=== PATIENT | female | born 1930 | race African-American/Black ===

== ENCOUNTER → 2019-09-18 | Outpatient (CLI) | payer OTHER | LOC: SJCVC 14:48 | DX: I47.1 Supraventricular tachycardia (principal); I49.1 Atrial premature depolarization; E11.9 Type 2 diabetes mellitus without complications; Z79.899 Other long term (current) drug therapy ==

== ENCOUNTER → 2019-10-01 | Outpatient (CLI) | payer OTHER | LOC: SJCVC 13:12 | DX: I44.0 Atrioventricular block, first degree (principal); R94.31 Abnormal electrocardiogram [ECG] [EKG]; I47.1 Supraventricular tachycardia; E11.9 Type 2 diabetes mellitus without complications; Z79.899 Other long term (current) drug therapy; Z82.49 Family history of ischemic heart disease and other diseases of the circulatory system; Z79.84 Long term (current) use of oral hypoglycemic drugs ==

== ENCOUNTER → 2020-07-06 | Outpatient (CLI) | payer OTHER | LOC: SJCVC 08:38 | PROVIDERS: ATTEND Internal Medicine Cardiovascular Disease | DX: R94.31 Abnormal electrocardiogram [ECG] [EKG] (principal); I10 Essential (primary) hypertension; R00.2 Palpitations; I49.1 Atrial premature depolarization; Z79.899 Other long term (current) drug therapy ==

== ENCOUNTER 2020-08-06 19:44 | Emergency (ER) | payer OTHER ==
[~2020-08-06] VITALS: Ht 167.6 cm; Wt 54.4 kg
[2020-08-06] MEDS ORDERED: KETOCONAZOLE15 GM TOP (19:57)
[2020-08-06] MEDS ORDERED: BETAMETHASONE D50 G2 TOP (19:57)
[2020-08-06] MEDS ORDERED: HYDROXYZINE PAM25 M1 PO (19:58)
[2020-08-06 20:28] LABS: ABSOLUTE NEUTROPHILS 5.7 thou/uL (1.4-8.2); BASOPHILS 0.5 % (0.0-2.0); HEMATOCRIT 37.1 % (37.0-47.0); HEMOGLOBIN 12.4 gm/dL (12.0-15.0); LYMPHOCYTES 18.2 % (24.0-44.0); MCH 28.8 pg (26.0-34.0); MCHC 33.4 g/dL (28.0-37.0); MCV 86.4 fL (80.0-100.0); MONOCYTES 7.9 % (1.0-8.0); PLATELET COUNT 185 thou/uL (150-400); POLYS 71.4 % (36.0-66.0); RDW 14.4 % (10.5-14.5); WBC 7.9 thou/uL (4.0-11.0)
[2020-08-06 20:38] LABS: CALCIUM 10.2 mg/dL (8.5-10.1); CREATININE 1.4 mg/dL (0.6-1.0)
[2020-08-06 20:54] VITALS: BP 180/86
== END 2020-08-06 20:55 | disposition home or self-care (01) ==
LOC: ER 19:44
PROVIDERS: Nurse Practitioner
DX: R21 Rash and other nonspecific skin eruption (principal); H57.89 Other specified disorders of eye and adnexa; I10 Essential (primary) hypertension; E11.9 Type 2 diabetes mellitus without complications; Z90.711 Acquired absence of uterus with remaining cervical stump; Z98.890 Other specified postprocedural states; Z79.899 Other long term (current) drug therapy; Z91.040 Latex allergy status; Z88.0 Allergy status to penicillin; Z88.2 Allergy status to sulfonamides